=== PATIENT | female | born 1990 | race Caucasian/White ===

== ENCOUNTER 2016-11-11 14:53 | Observation (INO) | payer MEDICAID, SELFPAY ==
[2016-11-11 15:34] LABS: Bacteria MODERATE /HPF (NEGATIVE); Bilirubin NEGATIVE (NEGATIVE); COMPLETE URINE MICROSCOPIC? YES; Collection Type VOID; Epithelial Cells MANY /HPF (FEW); Glucose NEGATIVE (NEGATIVE); Leukocyte Esterase 2+ (NEGATIVE); WBC 50-100 /HPF (0-5)
[2016-11-11 16:16] VITALS: BP 106/64; PULSE 88
== END 2016-11-11 16:15 | disposition home or self-care (01) ==
LOC: OB 14:53
PROVIDERS: ADMIT Family Medicine; ATTEND Family Medicine
DX: Z34.82 Encounter for supervision of other normal pregnancy, second trimester (principal)
CPT/HCPCS: 80307; 81000; 87086; G0378

== ENCOUNTER 2017-01-05 08:29 | Observation (INO) | payer MEDICAID, SELFPAY ==
[2017-01-05 09:10] LABS: Collection Type CLEAN CATCH; Leukocyte Esterase 2+ (NEGATIVE)
[2017-01-05 09:11] LABS: Bilirubin NEGATIVE (NEGATIVE); Blood NEGATIVE Ery/ul (0-5); COMPLETE URINE MICROSCOPIC? YES; Glucose 100 mg/dL (NEGATIVE)
[2017-01-05] MEDS ORDERED: Lactated Ringers 1,000 ML IV SCH ×2 (10:00→11:30)
[2017-01-05 10:10] LABS: BASOPHIL % 0.4 % (0.0-0.4); Eosinophil % 0.7 % (0.00-5.0); Granulocytes % 69.7 % (36.0-66.0); Lymphocytes % 21.1 % (24.0-44.0); Mean Cell Volume 81.9 fl (78-100); Mean Corpuscular Hemoglobin 27.5 pg (26-32); Mean Platelet Volume 11.1 fl (6-9.5); Monocytes % 8.1 % (0.0-12.0); Platelet Count 208 K/mm3 (150-450); Red Blood Count 4.37 M/mm3 (4.1-5.4); Red Cell Distribution Width 12.7 % (11.5-14.0); White Blood Count 10.3 K/mm3 (4.0-10.5)
[2017-01-05 10:11] LABS: Bacteria MANY /HPF (NEGATIVE); Epithelial Cells PACKED /HPF (FEW); WBC 25-50 /HPF (0-5)
[2017-01-05 10:43] LABS: ALBUMIN 2.7 g/dL (3.4-5.0); ALKALINE PHOSPHATASE 129 U/L (46-116); ANION GAP 14.8 MEQ/L (5-15); BLOOD UREA NITROGEN 4 mg/dL (9-20); CHLORIDE 106 mEq/L (98-107); Carbon Dioxide 21.6 mEq/L (21-32); Glucose 92 MG/DL (70-110); Potassium 3.8 mEq/L (3.5-5.1); SGOT/AST 15 U/L (15-37); SGPT/ALT 15 U/L (12-78); SODIUM 139 mEq/L (136-145); Total Protein 6.6 gm/dL (6.4-8.2)
[2017-01-05] MEDS ORDERED: ROCEPHIN 1 Gm-D5w 50 ml Bag** 1 G/50 ML IVPB IV SCH (11:30)
[2017-01-05] MEDS: Lactated Ringers 1,000 ML IV SCH ×2 (12:30→23:10)
[2017-01-05] MEDS ORDERED: BRETHINE 1 MG/ML SQ ONE (13:09)
--- NOTE | 2017-01-05 15:04 | XRAY ---
Exam: Limited OB ultrasound from 01/05/2017. Comparison: Limited OB ultrasound from 12/17/2016. Indication: Amniotic fluid index determination. Findings: A single live intrauterine fetus is seen in the cephalic lie. cardiac activity measures 144 bpm. The amniotic fluid index was calculated twice by the mechanical engineering technologist and averaged. This averaged amniotic fluid index measured 9.5 cm, previous measuring 11.1 cm on 12/17/2016. The 5th percentile for amniotic fluid index during a normal is 8.3 cm at 33 weeks and 8.1 cm at 34 weeks. 50th percentile measurements are 14.3 cm at 33 weeks and 14.2 cm at 34 weeks. Therefore, the amniotic fluid index is towards the lower limits of normal for the gestational age, but is within 2 standard deviations of the mean. Oligohydramnios is defined as an amniotic fluid index less than the 5th percentile for a specific gestational age. Impression: 1. Average amniotic fluid index measures 9.5 cm currently. See above.
[2017-01-05] MEDS: PROCARDIA 10 MG PO SCH ×2 (16:29→22:07)
[2017-01-05] MEDS ORDERED: Zofran 4 MG/2 ML VIAL IV PRN (19:23)
[2017-01-05] MEDS ORDERED: MORPHINE SULFATE 4 MG INJ IV PRN (19:23)
[2017-01-05] MEDS ORDERED: TYLENOL 325 MG PO PRN (19:23)
[2017-01-05 20:45] VITALS: O2SAT 97
[2017-01-06] MEDS: Norco 10/325 MG Tablet PO PRN ×2 (03:03→07:00)
[2017-01-06] MEDS: PROCARDIA 10 MG PO SCH (04:10)
--- NOTE | 2017-01-06 08:38 | PCM.DS ---
Discharge Summary Date of Admission: 01/05/17 08:29 Admitting Physician: KANE BRICE Primary Care Provider: KANE BRICE Allergies Allergies No Known Drug Allergies Allergy (Verified 01/05/17 09:12) Hospital Summary - Hospital Course Hospital Course: patient is a 26yo at 33 wks with hx of prior . she came in yesterday with contractions, lower abdomen pain and feeling poorly. u/s was reassuring with ODETTE of 9, was started on procardia for contractions and received IV rocephin. she is feeling much better today, no contractions on toco nor palpable per nursing. she denies fever, chills, vomiting or urinary symptoms prior to arrival. has good movement, no leakage of fluid. - Vitals & Intake/Output Vital Signs: Vital Signs Temperature 97.7 F 01/06/17 04:00 Pulse Rate 96 H 01/06/17 04:00 Respiratory Rate 18 01/06/17 04:00 Blood Pressure 118/61 01/06/17 04:00 O2 Sat by Pulse Oximetry 97 01/05/17 20:00 Intake & Output: Intake & Output 01/03/17 01/04/17 01/05/17 01/06/17 11:59 11:59 11:59 11:59 Intake Total 4504 Balance 4504 Weight 75.296 kg - Lab Result Diagrams: 01/05/17 10:06 01/05/17 10:06 Lab Results-Last 24 Hrs: Lab Results-Last 24 Hours 01/05/17 01/05/17 01/05/17 Range/Units 09:00 10:06 10:06 WBC 10.3 (4.0-10.5) K/mm3 RBC 4.37 (4.1-5.4) M/mm3 Hgb 12.0 (12.0-16.0) gm/dl Hct 35.8 (35-47) % MCV 81.9 (78-100) fl MCH 27.5 (26-32) pg MCHC 33.5 (32-36) g/dl RDW 12.7 (11.5-14.0) % Plt Count 208 (150-450) K/mm3 MPV 11.1 H (6-9.5) fl Gran % 69.7 H (36.0-66.0) % Lymphocytes % 21.1 L (24.0-44.0) % Monocytes % 8.1 (0.0-12.0) % Eosinophils % 0.7 (0.00-5.0) % Basophils % 0.4 (0.0-0.4) % Basophils # 0.04 (0-0.4) Sodium 139 (136-145) mEq/L Potassium 3.8 (3.5-5.1) mEq/L Chloride 106 (98-107) mEq/L Carbon Dioxide 21.6 (21-32) mEq/L Anion Gap 14.8 (5-15) MEQ/L BUN 4 L (9-20) mg/dL Creatinine 0.48 L (0.55-1.30) mg/dl Estimated GFR > 60 ML/MIN Glucose 92 (70-110) MG/DL Calcium 9.3 (8.5-10.1) mg/dL Total Bilirubin 0.20 (0.2-1.0) mg/dL AST 15 (15-37) U/L ALT 15 (12-78) U/L Alkaline Phosphatase 129 H (46-116) U/L Serum Total Protein 6.6 (6.4-8.2) gm/dL Albumin 2.7 L (3.4-5.0) g/dL Ur Collection Type CLEAN CATCH Urine Color YELLOW (YELLOW) Urine Appearance CLOUDY (CLEAR) Urine pH 6.0 (5-6) Ur Specific [place] 1.020 (1.005-1.025) Urine Protein 30 (Negative) Urine Ketones NEGATIVE (NEGATIVE) Urine Blood NEGATIVE (0-5) Victoriano/ul Urine Nitrite NEGATIVE (NEGATIVE) Urine Bilirubin NEGATIVE (NEGATIVE) Urine Urobilinogen NORMAL (0-1) mg/dL Ur Leukocyte Esterase 2+ (NEGATIVE) Urine Microscopic RBC 2-5 (0-2) /HPF Urine Microscopic WBC 25-50 (0-5) /HPF Ur Epithelial Cells PACKED (FEW) /HPF Urine Bacteria MANY (NEGATIVE) /HPF Urine Glucose 100 (NEGATIVE) mg/dL Specimen Received 01-05 Micro Results-Entire Visit: Microbiology 01/05/17 09:00 Urine Culture - Preliminary Urine, Void NO GROWTH TO DATE - Radiology Exams Ordered Rad Exams-Entire Visit: Radiology Procedures Category Date Time Status OB LIMITED [US] Urgent Exams 01/05/17 Completed Discharge Exam General Appearance: no apparent distress, alert Skin Exam: normal color, warm, dry Respiratory Exam: normal breath sounds, lungs clear, No respiratory distress Cardiovascular Exam: regular rate/rhythm, normal heart sounds Gastrointestinal/Abdomen Exam: soft, other (gravid) Extremity Exam: normal inspection, normal range of motion Back Exam: normal inspection, No CVA tenderness Final Diagnosis/Problem List - Final Discharge Diagnosis/Problem (1) UTI (urinary tract infection) during Current Visit: Yes Status: Acute Assessment & Plan: will give second dose of rocephin prior to discharge and send home on keflex with urine culture pending (2) contractions Current Visit: Yes Status: Acute Assessment & Plan: will continue procardia until 36wks - Discharge Disposition: Home, Self-Care Condition: Stable Prescriptions: New Cephalexin Mh 500 mg [Keflex 500 mg] 500 mg PO TID #21 capsule Nifedipine 10 mg [Procardia 10 mg] 10 mg PO Q6H #72 capsule Acetaminophen 325 mg [Tylenol 325 mg] 650 mg PO Q6H PRN PRN tablet PRN Reason: Pain And/Or Fever Continue Multivitamin [Flintstones] 1 tab PO DAILY Follow up with: KANE BRICE MD [Primary Care Provider] - 1 Week
[2017-01-06 09:00] VITALS: BP 119/60; PULSE 81
[2017-01-06] MEDS ORDERED: ROCEPHIN 1 Gm-D5w 50 ml Bag** 1 G/50 ML IVPB IV SCH (10:00)
== END 2017-01-06 11:25 | disposition home or self-care (01) ==
LOC: OB 08:29
PROVIDERS: ADMIT Family Medicine; ATTEND Family Medicine
DX: O23.43 Unspecified infection of urinary tract in pregnancy, third trimester (principal); Z3A.33 33 weeks gestation of pregnancy
CPT/HCPCS: 36415; 76815; 80053; 81000; 85025; 87086; G0378; J0696; A9270-GY

== ENCOUNTER 2017-01-27 18:45 | Observation (INO) | payer MEDICAID, SELFPAY ==
[2017-01-27 19:23] LABS: Bilirubin NEGATIVE (NEGATIVE); Blood NEGATIVE Ery/ul (0-5); COMPLETE URINE MICROSCOPIC? YES; Collection Type CLEAN CATCH; Glucose NEGATIVE (NEGATIVE); Leukocyte Esterase 1+ (NEGATIVE)
[2017-01-27 19:24] LABS: Bacteria MODERATE /HPF (NEGATIVE); Epithelial Cells MANY /HPF (FEW)
[2017-01-27 20:51] VITALS: BP 127/89; PULSE 98
== END 2017-01-27 20:45 | disposition home or self-care (01) ==
LOC: OB 18:45 → UNDOADMOB 18:45 → UNDODISOB 20:45
PROVIDERS: ADMIT Family Medicine; ATTEND Family Medicine
DX: Z34.83 Encounter for supervision of other normal pregnancy, third trimester (principal)
CPT/HCPCS: 80307; 81000; G0378

== ENCOUNTER 2017-02-10 03:31 | Inpatient (IN) | payer MEDICAID ==
[2017-02-10] MEDS ORDERED: Lactated Ringers 1,000 ML IV SCH (04:00)
[2017-02-10 04:21] LABS: Mean Cell Volume 80.7 fl (78-100); Mean Platelet Volume 11.4 fl (6-9.5); Platelet Count 201 K/mm3 (150-450); Red Blood Count 4.31 M/mm3 (4.1-5.4); Red Cell Distribution Width 13.4 % (11.5-14.0); White Blood Count 10.2 K/mm3 (4.0-10.5)
[2017-02-10 04:48] LABS: Mean Corpuscular Hemoglobin 27.3 pg (26-32)
[2017-02-10 05:09] LABS: INR 0.99 (0.8-3.0); PTT 25.8 SECONDS (25.3-37.0)
[2017-02-10] MEDS: Lactated Ringers 1,000 ML IV ONE ×2 (05:24→06:39)
[2017-02-10 05:25] LABS: Collection Type VOID
[2017-02-10 05:26] LABS: Bacteria MANY /HPF (NEGATIVE); Bilirubin NEGATIVE (NEGATIVE); Blood TRACE NON-HEM Ery/ul (0-5); COMPLETE URINE MICROSCOPIC? YES; Epithelial Cells MANY /HPF (FEW); Glucose NEGATIVE (NEGATIVE); Leukocyte Esterase 1+ (NEGATIVE); WBC 15-25 /HPF (0-5)
[2017-02-10] MEDS ORDERED: Dextrose 5%-Lr IV Solution 1000 ML 1,000 ML IV SCH (06:00)
[2017-02-10] MEDS ORDERED: KEFZOL 1 GM ONE (06:30)
[2017-02-10] MEDS ORDERED: MORPHINE SULFATE 2 MG INJ IV PRN ×2 (08:00→09:52)
[2017-02-10] MEDS ORDERED: Narcan 0.4 MG/ML IV PRN (08:00)
[2017-02-10] MEDS ORDERED: BENADRYL 50 MG/ML IV PRN ×2 (08:00→09:52)
[2017-02-10] MEDS ORDERED: HOLD NARCOTIC ANALGESICS AND SEDATIVES X24 HR MC PRN (08:00)
[2017-02-10] MEDS ORDERED: Nubain 10 MG/ML IV PRN ×2 (08:00→09:52)
[2017-02-10] MEDS ORDERED: PERCOCET TABLET 5/325MG PO PRN ×2 (08:00→09:52)
[2017-02-10] MEDS ORDERED: DEMEROL 50 MG IV PRN ×2 (08:00→09:52)
[2017-02-10] MEDS ORDERED: CLARITIN 10 MG PO PRN ×2 (08:00→09:52)
[2017-02-10] MEDS ORDERED: Zofran 4 MG/2 ML VIAL IV PRN ×2 (08:00→09:52)
[2017-02-10] MEDS ORDERED: DILAUDID 2 MG INJECTION ONE (08:42)
[2017-02-10] MEDS ORDERED: Dulcolax 10 MG SUPP PR PRN (09:00)
[2017-02-10] MEDS ORDERED: LANSINOH 40 GM TOP PRN (09:00)
[2017-02-10] MEDS ORDERED: TYLENOL EXTRA STRENGTH 500 MG PO PRN (09:00)
[2017-02-10] MEDS ORDERED: Adacel Vial IM ONE (09:00)
[2017-02-10] MEDS ORDERED: Dermoplast Spray TP PRN (09:00)
[2017-02-10] MEDS ORDERED: Mylicon 80MG PO PRN (09:00)
[2017-02-10] MEDS ORDERED: Anucort-HC SUPPOSITORY PR PRN (09:00)
[2017-02-10] MEDS ORDERED: CORTISONE 1% CREAM TP PRN (09:00)
[2017-02-10] MEDS: FERREX 150 PO SCH (10:19)
[2017-02-10] MEDS: Colace 100 MG PO SCH ×2 (10:19→22:42)
[2017-02-10] MEDS ORDERED: Astramorph-Pf 5 MG/10 ML IJ ONE (12:44)
[2017-02-10] MEDS ORDERED: SUBLIMAZE 100 MCG/2 ML IV ONE (12:44)
--- NOTE | 2017-02-10 12:59 | OP ---
SURGERY DATE/TIME: 02/10/2017 0704 PREOPERATIVE DIAGNOSES: 1) History of prior section. 2) Term intrauterine . 3) Oligohydramnios. 4) Desires permanent sterilization. POSTOPERATIVE DIAGNOSES: 1) History of prior section. 2) Term intrauterine . 3) Oligohydramnios. 4) Desires permanent sterilization. PROCEDURE: Repeat low transverse section with bilateral tubal ligation. SURGEON: Sanket Lew M.D. ESTIMATED BLOOD LOSS: 400 cc. IV: 1200 crystalloid. URINE OUTPUT: 150 cc clear straw-colored urine. ANESTHESIA: General by Christoph Jarvis CRNA. SPECIMENS: Bilateral fallopian tube segments and placenta were sent for pathology. DESCRIPTION OF PROCEDURE: After informed written consent was obtained, the patient was taken to the operating room. I confirmed that she understood the irreversible nature of bilateral tubal ligation and no further fertility was desired. After multiple attempts by anesthesia at spinal, it was unsuccessful due to severe scoliosis the decision was made to proceed with general anesthesia. She was prepped and draped in usual sterile fashion. General anesthesia was induced. A low transverse skin incision was made through the area of prior scar and carried down through subcutaneous fat to the level of the fascia. The fascia was nicked on both sides of the midline and extended in horizontal fashion using curved Alonzo scissors. The superior free edge of the fascia was grasped with Ericka clamps and the underlying rectus muscles were dissected free. The same was repeated inferiorly. The peritoneal cavity was opened and extended in horizontal fashion. Bladder flap was created and reflected over the lower uterine segment. A horizontal uterine incision was made by knife and carried down to the level of the amniotic membranes which were carefully artificially ruptured. A viable female delivered from the vertex presentation with a strong cry immediately upon delivery. The uterus was then exteriorized and the placenta was removed in its entirety. The uterine cavity was sponge cleaned with a lap sponge and the uterine incision was closed with #1 chromic in a running locked fashion. Good hemostasis and good closure were achieved. Next, the left fallopian tube was identified and carried down to the fimbrial end. It was grasped with Anne and electrocautery was used to make a window in the mesosalpinx. The proximal distal segments of tube were then ligated with 0 chromic tie. The interceding tube segment was dissected free with Metzenbaum scissors. Free edge of the tube was then cauterized with electrocautery. The same was repeated on the right side and both were sent for pathology. Posterior cul-de-sac was wiped free of blood and clot and the uterus was returned to peritoneal cavity. Lateral gutters were wiped free of blood and clot. The uterine incision was noted to be hemostatic with good closure. Next, the fascia was closed with 0 Vicryl in a running fashion with good closure and good hemostasis. Subcutaneous fat was irrigated with warm sterile saline and any areas of bleeding cauterized with electrocautery. Finally, the skin layer was closed with 4-0 undyed Vicryl in a running subcuticular fashion. Steri-Strips and occlusive dressing were placed over the incision and the patient was transferred to the recovery room in excellent condition.
[2017-02-10] MEDS: MOTRIN 400 MG PO PRN ×2 (13:16→19:45)
[2017-02-10] MEDS ORDERED: DIPRIVAN 200 MG/20 ML IV ONE ×2 (14:46→14:52)
[2017-02-10] MEDS ORDERED: Pitocin 10 UNITS/ML IV ONE (14:46)
[2017-02-10] MEDS ORDERED: Decadron 4 MG INJ IV ONE (14:46)
[2017-02-10] MEDS ORDERED: Zofran 4 MG/2 ML VIAL IV ONE (14:46)
[2017-02-10] MEDS ORDERED: TORAdol 30 mg Injection IJ ONE (14:46)
[2017-02-10] MEDS ORDERED: Marcaine 0.5% SDV 10 ML IJ ONE (14:46)
[2017-02-10] MEDS ORDERED: Quelicin Fliptop 200 MG/10 ML IJ ONE ×2 (14:46→14:52)
[2017-02-10] MEDS ORDERED: Zemuron 100 MG/10 ML IJ ONE ×2 (14:46→14:52)
[2017-02-10] MEDS ORDERED: XYLOCAINE 2%/Epi 1:200000 20ML VIAL MPF IJ ONE (14:46)
[2017-02-10] MEDS: NORCO 5/325 MG PO PRN ×2 (17:05→22:42)
[2017-02-11] MEDS: MOTRIN 400 MG PO PRN ×4 (01:59→23:04)
[2017-02-11 06:18] LABS: Mean Cell Volume 82.5 fl (78-100); Mean Corpuscular Hemoglobin 26.7 pg (26-32); Platelet Count 207 K/mm3 (150-450); Red Blood Count 3.59 M/mm3 (4.1-5.4); Red Cell Distribution Width 13.6 % (11.5-14.0); White Blood Count 14.8 K/mm3 (4.0-10.5)
[2017-02-11] MEDS: NORCO 5/325 MG PO PRN ×2 (06:28→15:43)
[2017-02-11] MEDS ORDERED: Phenergan 25 MG INJ IM PRN (08:00)
[2017-02-11] MEDS ORDERED: NORCO 5/325 MG PO PRN (08:00)
[2017-02-11] MEDS ORDERED: DEMEROL 75 MG IM PRN (08:00)
[2017-02-11] MEDS: Colace 100 MG PO SCH ×2 (08:42→21:46)
[2017-02-11] MEDS: FERREX 150 PO SCH (08:42)
[2017-02-11] MEDS: PERCOCET TABLET 5/325MG PO PRN ×2 (10:33→19:43)
[2017-02-12] MEDS: PERCOCET TABLET 5/325MG PO PRN (00:44)
[2017-02-12] MEDS: MOTRIN 400 MG PO PRN (07:17)
--- NOTE | 2017-02-12 08:46 | PCM.DS ---
Discharge Summary Date of Admission: 02/10/17 03:31 Admitting Physician: KANE BRICE Consults: Consults on Case 02/10/17 03:44 Notify Physician 02/10/17 03:45 Notify Anesthesia Provider Primary Care Provider: KANE BRICE Allergies Allergies No Known Drug Allergies Allergy (Verified 01/05/17 09:12) Hospital Summary - Hospital Course Hospital Course: had a repeat c/s at 38+wks with BTL, no complications . has mild lochia, tolerating po. pain is controlled, . - Vitals & Intake/Output Vital Signs: Vital Signs Temperature 97.7 F 02/11/17 19:50 Pulse Rate 74 02/12/17 02:00 Respiratory Rate 18 02/12/17 02:00 Blood Pressure 113/63 02/12/17 02:00 O2 Sat by Pulse Oximetry Intake & Output: Intake & Output 02/09/17 02/10/17 02/11/17 02/12/17 11:59 11:59 11:59 11:59 Intake Total 2700 Balance 2700 Weight 78.471 kg - Lab Result Diagrams: 02/11/17 05:15 Micro Results-Entire Visit: Microbiology 02/10/17 07:36 Urine Culture - Final Urine, Catheterized NO GROWTH Discharge Exam General Appearance: no apparent distress, alert Respiratory Exam: normal breath sounds, lungs clear, No respiratory distress Cardiovascular Exam: regular rate/rhythm, normal heart sounds Gastrointestinal/Abdomen Exam: soft, other (incision c/d/i), No tenderness, No mass Extremity Exam: normal inspection, normal range of motion Final Diagnosis/Problem List - Final Discharge Diagnosis/Problem (1) delivery delivered Current Visit: Yes Status: Acute (2) Tubal ligation status Current Visit: Yes Status: Acute - Discharge Disposition: Home, Self-Care Condition: Stable Prescriptions: [place] Polysaccharides Complex [Ferrex 150] 150 mg PO DAILY capsule Oxycodone/APAP 5 mg/325 mg [Percocet Tablet 5/325Mg] 1 - 2 tab PO Q4H PRN PRN #30 tablet PRN Reason: Moderate Pain Continue Multivitamin [Flintstones] 1 tab PO DAILY Follow up with: KANE BRICE MD [Primary Care Provider] - 1 Week
[2017-02-12 09:16] VITALS: BP 123/95; PULSE 99
[2017-02-12] MEDS: Colace 100 MG PO SCH (10:32)
[2017-02-12] MEDS: FERREX 150 PO SCH (10:32)
== END 2017-02-12 12:45 | disposition home or self-care (01) | DRG 765 ==
LOC: OB 03:31
PROVIDERS: ADMIT Family Medicine; ATTEND Family Medicine
PROC: 10D00Z1 Extraction of Products of Conception, Low, Open Approach (ICD-10-PCS; principal; 2017-02-10)
PROC: 0UL70ZZ Occlusion of Bilateral Fallopian Tubes, Open Approach (ICD-10-PCS; 2017-02-10)
DX: O34.211 Maternal care for low transverse scar from previous cesarean delivery (principal); O41.03X0 Oligohydramnios, third trimester, not applicable or unspecified; Z3A.38 38 weeks gestation of pregnancy; Z37.0 Single live birth; Z30.2 Encounter for sterilization
CPT/HCPCS: 01961; 36415; 64425; 76942; 80307; 81000; 85027; 85610; 85730; 86850; 86900; 86901; 87086; 88302; 88307; 90715; 94799; J0330; J0690; J1100; J1170; J1885; J2274; J2405; J2590; J2704; J3010; L0625; A9270-GY

== ENCOUNTER 2019-08-17 13:20 | Emergency (ER) | payer OTHER ==
[2019-08-17] MEDS ORDERED: Sodium Chloride 0.9% 1000 ML 1,000 ML IV STA (13:40)
[2019-08-17] MEDS ORDERED: Sodium Chloride 0.9% 1000 ML 1,000 ML ONE (13:54)
--- NOTE | 2019-08-17 14:02 | XRAY ---
Indication: Sternal pain. Comparison: None Portable chest demonstrates normal heart and lungs. Bony thorax intact with minimal scoliosis.
[2019-08-17 14:16] LABS: Hematocrit 36.7 % (35-47); Hemoglobin 12.5 gm/dl (12.0-16.0); Mean Cell Volume 81.6 fl (78-100); Mean Corpuscular Hemoglobin 27.8 pg (26-32); Mean Corpuscular Hgb Concent. 34.1 g/dl (32-36); Mean Platelet Volume 11.5 fl (7.5-11.0); Platelet Count 221 K/mm3 (150-450); White Blood Count 4.3 K/mm3 (4.0-10.5)
--- NOTE | 2019-08-17 14:27 | ERPHSYRPT ---
- History of Present Illness Time Seen by Provider: 08/17/19 13:35 Historian: patient Exam Limitations: no limitations Patient Subjective Stated Complaint: pt here for chest pain on and off for about a month, pain is to epigastric area, no nause or vomiting, no sob Triage Nursing Assessment: pt alert, walked in, resp easy, skin w/d/p. no edema noted, movea all ext well Physician History: Is a 29-year-old female who 2 weeks ago experienced chest heaviness upon awakening which went to the left side of the chest. She started again with the heavy feeling in her chest like someone sitting on it today. She has had some nausea with the pain she says it is hard to breathe and it seems pleuritic in nature. She has had no p.o. intake today no fever no cough runny nose chills fever etc. Risk factors are negative all except for cholesterol status which is unknown. Timing/Duration: intermittent Activities at Onset: sleep Quality: pressure Location: substernal Chest Pain Radiation: no radiation Severity of Pain-Max: moderate Severity of Pain-Current: moderate Modifying Factors: Improves With: nothing Associated Symptoms: nausea, shortness of breath, hurts to breathe Aspirin Treatment Today: no aspirin today Allergies/Adverse Reactions: acetaminophen [From Tylenol] Adverse Reaction (Verified 08/17/19 13:32) Home Medications: Escitalopram Oxalate 10 mg [Lexapro 10 MG] 10 mg PO DAILY 08/17/19 [History] Hx Tetanus, Diphtheria Vaccination/Date Given: Yes Hx Influenza Vaccination/Date Given: No Hx Pneumococcal Vaccination/Date Given: No Immunizations Up to Date: Yes Travel Risk - International Travel Have you traveled outside of the country in past 3 weeks: No Have you or anyone close to you been diagnosed with or: No Do your reside in a community with a known COVID-19 case?: No If Yes where:: [place] - Coronavirus Screening Has patient experienced Coronavirus symptoms: No - Review of Systems Constitutional: No Fever, No Chills Eyes: No Symptoms Ears, Nose, & Throat: No Symptoms Respiratory: Dyspnea, No Cough Cardiac: Chest Pain, No Edema, No Syncope Abdominal/Gastrointestinal: Nausea, No Abdominal Pain, No Vomiting, No Diarrhea Genitourinary Symptoms: No Dysuria Musculoskeletal: No Back Pain, No Neck Pain Skin: No Rash Neurological: No Dizziness, No Focal Weakness, No Sensory Changes Psychological: No Symptoms Endocrine: No Symptoms All Other Systems: Reviewed and Negative - Past Medical History Pertinent Past Medical History: No Neurological History: No Pertinent History ENT History: No Pertinent History Cardiac History: No Pertinent History Respiratory History: No Pertinent History Endocrine Medical History: No Pertinent History Musculoskeletal History: No Pertinent History GI Medical History: No Pertinent History History: No Pertinent History Psycho-Social History: No Pertinent History Female Reproductive Disorders: No Pertinent History - Past Surgical History Past Surgical History: Yes Neuro Surgical History: No Pertinent History Cardiac: No Pertinent History Respiratory: No Pertinent History Gastrointestinal: No Pertinent History Genitourinary: No Pertinent History Musculoskeletal: No Pertinent History Female Surgical History: Section - Social History Smoking Status: Never smoker Exposure to second hand smoke: No Drug Use: none Patient Lives Alone: No - Female History Hx Last Menstrual Period: now Hx Now: No - Nursing Vital Signs Nursing Vital Signs: Initial Vital Signs Temperature 98.4 F 08/17/19 13:22 Pulse Rate 71 08/17/19 13:22 Respiratory Rate 18 08/17/19 13:22 Blood Pressure 139/118 08/17/19 13:22 O2 Sat by Pulse Oximetry 97 08/17/19 13:22 Pain Scale Pain Intensity 8 - Physical Exam General Appearance: mild distress, alert Eye Exam: PERRL/EOMI, eyes nml inspection Ears, Nose, Throat Exam: normal ENT inspection, moist mucous membranes Neck Exam: normal inspection, non-tender, supple, full range of motion Respiratory Exam: normal breath sounds, lungs clear, No respiratory distress Cardiovascular Exam: regular rate/rhythm, normal heart sounds Gastrointestinal/Abdomen Exam: soft, No tenderness, No mass Back Exam: normal inspection, No CVA tenderness, No vertebral tenderness Extremity Exam: normal inspection, normal range of motion Neurologic Exam: alert, oriented x 3, cooperative, normal mood/affect, sensation nml, No motor deficits Skin Exam: normal color, warm, dry Lymphatic Exam: No adenopathy SpO2 Interpretation: normal SpO2: 98 O2 Delivery: Room Air - Course Nursing assessment & vital signs reviewed: Yes EKG Interpreted by Me: RATE (76), Sinus Rhythm, NORMAL AXIS, NORMAL INTERVALS, NORMAL QRS, NORMAL ST-T - Radiology Exams Chest X-ray Interpretation: Negative - Radiology Ultrasound Exam Gallbladder Ultrasound: negative Ordered Tests: Active Orders 24 hr Category Date Time Status Enrichment Assistant STAT Care 08/17/19 13:41 Active EKG-ER Only STAT Care 08/17/19 13:40 Active IV Insertion STAT Care 08/17/19 13:40 Active CHEST 1 VIEW (PORTABLE) Stat Exams 08/17/19 13:41 Completed GALLBLADDER [US] Stat Exams 08/17/19 16:14 Taken AMYLASE Stat Lab 08/17/19 14:00 Completed CBC W DIFF Stat Lab 08/17/19 14:00 Completed CMP Stat Lab 08/17/19 14:00 Completed D-DIMER QUANTITATIVE Stat Lab 08/17/19 14:00 Completed HCG,QUALITATIVE URINE Stat Lab 08/17/19 14:00 Completed LIPASE Stat Lab 08/17/19 14:00 Completed Lactic Acid Stat Lab 08/17/19 13:45 Completed MAGNESIUM Stat Lab 08/17/19 14:00 Completed Manual Differential NC Stat Lab 08/17/19 14:00 Completed NT PRO BNP Stat Lab 08/17/19 14:00 Completed PROTIME WITH INR Stat Lab 08/17/19 14:00 Completed TROPONIN Q3H Lab 08/17/19 14:00 Completed TROPONIN Q3H Lab 08/17/19 16:45 Ordered TROPONIN Q3H Lab 08/17/19 19:45 Ordered TROPONIN Q3H Lab 08/17/19 22:45 Ordered TROPONIN Q3H Lab 08/18/19 01:45 Ordered UA W/RFX UR CULTURE Stat Lab 08/17/19 14:00 Completed Urine Triage Profile Stat Lab 08/17/19 14:00 Completed Medication Summary Discontinued Medications Generic Name Dose Route Start Last Admin Trade Name Freq PRN Reason Stop Dose Admin Hydromorphone HCl 1 mg 08/17/19 15:18 08/17/19 15:24 Hydromorphone 1 Mg/Ml Ampule IV 08/17/19 15:19 1 mg STAT ONE Administration Hydromorphone HCl Confirm 08/17/19 15:21 Hydromorphone 1 Mg/Ml Ampule Administered 08/17/19 15:22 Dose 1 mg .ROUTE .STK-MED ONE Sodium Chloride 1,000 mls @ 999 mls/hr 08/17/19 13:40 08/17/19 15:33 Sodium Chloride 0.9% 1000 Ml IV 08/17/19 14:40 Infused .Q1H1M STA Infusion Sodium Chloride Confirm 08/17/19 13:54 Sodium Chloride 0.9% 1000 Ml Administered 08/17/19 13:55 Dose 1,000 mls @ ud .ROUTE .STK-MED ONE Ondansetron HCl 4 mg 08/17/19 15:18 08/17/19 15:24 Zofran 4 Mg/2 Ml Vial IV 08/17/19 15:19 4 mg STAT ONE Administration Ondansetron HCl Confirm 08/17/19 15:20 Zofran 4 Mg/2 Ml Vial Administered 08/17/19 15:21 Dose 4 mg .ROUTE .K-MED ONE Lab/Rad Data: Laboratory Result Diagrams 08/17/19 14:00 08/17/19 14:00 Laboratory Results 08/17/19 08/17/19 08/17/19 Range/Units 14:00 14:00 14:00 WBC (4.0-10.5) K/mm3 RBC (4.1-5.4) M/mm3 Hgb (12.0-16.0) gm/dl Hct (35-47) % MCV (78-100) fl MCH (26-32) pg MCHC (32-36) g/dl RDW (11.5-14.0) % Plt Count (150-450) K/mm3 MPV (7.5-11.0) fl PT (9.95-12.35) SECONDS INR (0.8-3.0) D-Dimer (215-500) ng/mL Sodium (137-145) mmol/L Potassium (3.5-5.1) mmol/L Chloride (98-107) mmol/L Carbon Dioxide (22-30) mmol/L Anion Gap (5-15) MEQ/L BUN (7-17) mg/dL Creatinine (0.52-1.04) mg/dL Estimated GFR ML/MIN Glucose (74-106) mg/dL Lactic Acid (0.4-2.0) Calcium (8.4-10.2) mg/dL Magnesium (1.6-2.3) mg/dL Total Bilirubin (0.2-1.3) mg/dL AST (14-36) U/L ALT (0-35) U/L Alkaline Phosphatase (38-126) U/L Troponin I (0.000-0.034) ng/mL NT-Pro-B Natriuret Pep (0-450) pg/mL Serum Total Protein (6.3-8.2) g/dL Albumin (3.5-5.0) g/dL Amylase (30-110) U/L Lipase (23-300) U/L Urine Color STRAW (YELLOW) Urine Appearance CLEAR (CLEAR) Urine pH 6.0 (5-6) Ur Specific [place] 1.005 (1.005-1.025) Urine Protein NEGATIVE (Negative) Urine Ketones NEGATIVE (NEGATIVE) Urine Blood NEGATIVE (0-5) Victoriano/ul Urine Nitrite NEGATIVE (NEGATIVE) Urine Bilirubin NEGATIVE (NEGATIVE) Urine Urobilinogen NEGATIVE (0-1) mg/dL Ur Leukocyte Esterase NEGATIVE (NEGATIVE) Urine WBC (Auto) NONE (0-5) /HPF Urine RBC (Auto) NONE (0-2) /HPF U Epithel Cells (Auto) RARE (FEW) /HPF Urine Bacteria (Auto) NONE (NEGATIVE) /HPF Urine Mucus (Auto) SLIGHT (NEGATIVE) /HPF Urine Culture Reflexed NO (NO) Urine Glucose NEGATIVE (NEGATIVE) mg/dL Urine HCG, Qual NEGATIVE (Negative) Urine Opiates Level NEGATIVE (NEGATIVE) Ur Methadone NEGATIVE (NEGATIVE) Urine Barbiturates NEGATIVE (NEGATIVE) Ur Phencyclidine (PCP) NEGATIVE (NEGATIVE) Urine Amphetamine NEGATIVE (NEGATIVE) U Benzodiazepine Level NEGATIVE (NEGATIVE) Urine Cocaine NEGATIVE (NEGATIVE) Urine Marijuana (THC) NEGATIVE (NEGATIVE) 08/17/19 08/17/19 08/17/19 Range/Units 14:00 14:00 14:00 WBC (4.0-10.5) K/mm3 RBC (4.1-5.4) M/mm3 Hgb (12.0-16.0) gm/dl Hct (35-47) % MCV (78-100) fl MCH (26-32) pg MCHC (32-36) g/dl RDW (11.5-14.0) % Plt Count (150-450) K/mm3 MPV (7.5-11.0) fl PT 11.7 (9.95-12.35) SECONDS INR 1.03 (0.8-3.0) D-Dimer 467 (215-500) ng/mL Sodium 141 (137-145) mmol/L Potassium 3.8 (3.5-5.1) mmol/L Chloride 105 (98-107) mmol/L Carbon Dioxide 27 (22-30) mmol/L Anion Gap 13.1 (5-15) MEQ/L BUN 12 (7-17) mg/dL Creatinine 0.69 (0.52-1.04) mg/dL Estimated GFR > 60.0 ML/MIN Glucose 99 (74-106) mg/dL Lactic Acid (0.4-2.0) Calcium 9.2 (8.4-10.2) mg/dL Magnesium 2.0 (1.6-2.3) mg/dL Total Bilirubin 0.60 (0.2-1.3) mg/dL AST 51 H (14-36) U/L ALT 61 H (0-35) U/L Alkaline Phosphatase 76 (38-126) U/L Troponin I < 0.012 (0.000-0.034) ng/mL NT-Pro-B Natriuret Pep 101 (0-450) pg/mL Serum Total Protein 7.7 (6.3-8.2) g/dL Albumin 4.4 (3.5-5.0) g/dL Amylase 115 H (30-110) U/L Lipase 94 (23-300) U/L Urine Color (YELLOW) Urine Appearance (CLEAR) Urine pH (5-6) Ur Specific [place] (1.005-1.025) Urine Protein (Negative) Urine Ketones (NEGATIVE) Urine Blood (0-5) Victoriano/ul Urine Nitrite (NEGATIVE) Urine Bilirubin (NEGATIVE) Urine Urobilinogen (0-1) mg/dL Ur Leukocyte Esterase (NEGATIVE) Urine WBC (Auto) (0-5) /HPF Urine RBC (Auto) (0-2) /HPF U Epithel Cells (Auto) (FEW) /HPF Urine Bacteria (Auto) (NEGATIVE) /HPF Urine Mucus (Auto) (NEGATIVE) /HPF Urine Culture Reflexed (NO) Urine Glucose (NEGATIVE) mg/dL Urine HCG, Qual (Negative) Urine Opiates Level (NEGATIVE) Ur Methadone (NEGATIVE) Urine Barbiturates (NEGATIVE) Ur Phencyclidine (PCP) (NEGATIVE) Urine Amphetamine (NEGATIVE) U Benzodiazepine Level (NEGATIVE) Urine Cocaine (NEGATIVE) Urine Marijuana (THC) (NEGATIVE) 04/16/20 04/16/20 Range/Units 14:00 13:45 WBC 4.3 (4.0-10.5) K/mm3 RBC 4.50 (4.1-5.4) M/mm3 Hgb 12.5 (12.0-16.0) gm/dl Hct 36.7 (35-47) % MCV 81.6 (78-100) fl MCH 27.8 (26-32) pg MCHC 34.1 (32-36) g/dl RDW 12.0 (11.5-14.0) % Plt Count 221 (150-450) K/mm3 MPV 11.5 H (7.5-11.0) fl PT (9.95-12.35) SECONDS INR (0.8-3.0) D-Dimer (215-500) ng/mL Sodium (137-145) mmol/L Potassium (3.5-5.1) mmol/L Chloride (98-107) mmol/L Carbon Dioxide (22-30) mmol/L Anion Gap (5-15) MEQ/L BUN (7-17) mg/dL Creatinine (0.52-1.04) mg/dL Estimated GFR ML/MIN Glucose (74-106) mg/dL Lactic Acid 1.3 (0.4-2.0) Calcium (8.4-10.2) mg/dL Magnesium (1.6-2.3) mg/dL Total Bilirubin (0.2-1.3) mg/dL AST (14-36) U/L ALT (0-35) U/L Alkaline Phosphatase (38-126) U/L Troponin I (0.000-0.034) ng/mL NT-Pro-B Natriuret Pep (0-450) pg/mL Serum Total Protein (6.3-8.2) g/dL Albumin (3.5-5.0) g/dL Amylase (30-110) U/L Lipase (23-300) U/L Urine Color (YELLOW) Urine Appearance (CLEAR) Urine pH (5-6) Ur Specific [place] (1.005-1.025) Urine Protein (Negative) Urine Ketones (NEGATIVE) Urine Blood (0-5) Victoriano/ul Urine Nitrite (NEGATIVE) Urine Bilirubin (NEGATIVE) Urine Urobilinogen (0-1) mg/dL Ur Leukocyte Esterase (NEGATIVE) Urine WBC (Auto) (0-5) /HPF Urine RBC (Auto) (0-2) /HPF U Epithel Cells (Auto) (FEW) /HPF Urine Bacteria (Auto) (NEGATIVE) /HPF Urine Mucus (Auto) (NEGATIVE) /HPF Urine Culture Reflexed (NO) Urine Glucose (NEGATIVE) mg/dL Urine HCG, Qual (Negative) Urine Opiates Level (NEGATIVE) Ur Methadone (NEGATIVE) Urine Barbiturates (NEGATIVE) Ur Phencyclidine (PCP) (NEGATIVE) Urine Amphetamine (NEGATIVE) U Benzodiazepine Level (NEGATIVE) Urine Cocaine (NEGATIVE) Urine Marijuana (THC) (NEGATIVE) - Progress Progress: improved Air Movement: fair Blood Culture(s) Obtained: No Antibiotics given: No - Departure Departure Disposition: Home Clinical Impression: Chest pain Condition: Stable Critical Care Time: No Referrals: KANE RBICE MD [Primary Care Provider] - Instructions: Chest Pain (DC) Prescriptions: PANTOPRAZOLE 40 mg Tablet [Protonix 40MG Tablet] 40 mg PO DAILY 30 Days # 30 tab
[2019-08-17 14:30] LABS: Appearance CLEAR (CLEAR); Bilirubin NEGATIVE (NEGATIVE); Blood NEGATIVE Ery/ul (0-5); Epithelial Cells RARE /HPF (FEW); Glucose NEGATIVE (NEGATIVE); Ketones NEGATIVE (NEGATIVE); Leukocyte Esterase NEGATIVE (NEGATIVE); Mucus SLIGHT /HPF (NEGATIVE); Nitrite NEGATIVE (NEGATIVE); Protein,Urine Dip NEGATIVE (Negative); Specific Gravity 1.005 (1.005-1.025); Urobilinogen NEGATIVE mg/dL (0-1)
[2019-08-17 14:36] LABS: ALBUMIN 4.4 g/dL (3.5-5.0); ALKALINE PHOSPHATASE 76 U/L (38-126); AMYLASE 115 U/L (30-110); ANION GAP 13.1 MEQ/L (5-15); BLOOD UREA NITROGEN 12 mg/dL (7-17); CHLORIDE 105 mmol/L (98-107); Calcium 9.2 mg/dL (8.4-10.2); Carbon Dioxide 27 mmol/L (22-30); Creatinine 1 0.69 mg/dL (0.52-1.04); Glucose 99 mg/dL (74-106); LIPASE 94 U/L (23-300); NT PRO BNP 101 pg/mL (0-450); Potassium 3.8 mmol/L (3.5-5.1); SGOT/AST 51 U/L (14-36); SGPT/ALT 61 U/L (0-35); SODIUM 141 mmol/L (137-145); Total Protein 7.7 g/dL (6.3-8.2)
[2019-08-17 14:40] LABS: INR 1.03 (0.8-3.0); PROTIME 11.7 SECONDS (9.95-12.35)
[2019-08-17 14:42] LABS: Amphetamine,Urine NEGATIVE (NEGATIVE); Barbiturate,Urine NEGATIVE (NEGATIVE); Benzodiazepine,Urine NEGATIVE (NEGATIVE); Cocaine,Urine NEGATIVE (NEGATIVE); Methadone,Urine NEGATIVE (NEGATIVE); Opiate,Urine NEGATIVE (NEGATIVE); PCP,Urine NEGATIVE (NEGATIVE); THC,Urine NEGATIVE (NEGATIVE)
[2019-08-17] MEDS ORDERED: Zofran 4 MG/2 ML VIAL IV ONE (15:18)
[2019-08-17] MEDS ORDERED: Hydromorphone 1 mg/ml Ampule IV ONE (15:18)
[2019-08-17] MEDS ORDERED: Zofran 4 MG/2 ML VIAL ONE (15:20)
[2019-08-17] MEDS ORDERED: Hydromorphone 1 mg/ml Ampule ONE (15:21)
[2019-08-17 16:19] LABS: BAND 1 % (0.0-2.0); Lymphocytes 33 % (24-44); Monocyte 2 % (0.0-12.0); Neutrophils 64 % (36.0-66.0); Platelet Estimate NORMAL (NORMAL); Total Cells Counted 100
--- NOTE | 2019-08-17 16:34 | XRAY ---
Indication: Epigastric pain. Two-dimensional gallbladder sonogram performed. Comparison: None Visualized gallbladder, liver, pancreas, and right kidney appear sonographically normal. Common bile duct measures 3.3 mm. Right kidney measures 11.5 cm in length. No ascites. Impression: Negative gallbladder sonogram.
[2019-08-17 16:47] VITALS: BP 105/80; PULSE 80; O2SAT 99
== END 2019-08-17 16:50 | disposition home or self-care (01) ==
LOC: ED 13:20
DX: R07.89 Other chest pain (principal); R10.13 Epigastric pain; R11.0 Nausea; R06.02 Shortness of breath; Z79.899 Other long term (current) drug therapy
CPT/HCPCS: 36000; 36415; 71045; 76705; 80053; 80307; 81001; 82150; 83605; 83690; 83735; 83880; 84484; 84703; 85025; 85379; 85610; 93005; 93041; 96360; 96374; 96375; 99285; J1170; J2405